=== PATIENT | female | born 1990 | race Caucasian/White ===

== ENCOUNTER 2021-01-13 00:39 | Emergency (ER) | payer MEDICAID ==
[~2021-01-13] VITALS: Ht 162.6 cm; Wt 117.0 kg
[2021-01-13] MEDS ORDERED: IBUPROFEN 800MG TABLET PO ONE (01:30)
[2021-01-13] MEDS ORDERED: IBUP-2030 MT (02:11)
[2021-01-13 02:21] VITALS: BP 138/89
== END 2021-01-13 02:34 | disposition home or self-care (01) ==
LOC: ER 00:39
DX: S93.492A Sprain of other ligament of left ankle, initial encounter (principal); S93.491A Sprain of other ligament of right ankle, initial encounter; X58.XXXA Exposure to other specified factors, initial encounter; Y93.89 Activity, other specified; Y92.89 Other specified places as the place of occurrence of the external cause; Y99.8 Other external cause status
CPT/HCPCS: 73610; 81025; 99283